=== PATIENT | female | born 1970 | race Two or more races ===

== ENCOUNTER 2025-03-06 08:06 | Emergency (ER) | payer OTHER, SELFPAY ==
[2025-03-06 08:09] VITALS: BMI 26.6
[2025-03-06 08:37] VITALS: BP 170/106; PULSE 77; RESP 18; TEMP 36.9; O2SAT 100
--- NOTE | 2025-03-06 08:54 | PD.EDANKLE ---
Lower Extremity Injury RME/HPI General Chief Complaint: Ankle/Foot Injury Stated Complaint: FALL OFF MACHINE 3 FEET, PAIN/INJURY LEFT ANKLE Time Seen by Provider: 03/06/25 09:01 Source: patient and interpreter translator Arrival date/time: 03/06/25 08:06 Mode of arrival: wheelchair Limitations: no limitations RME / HPI Onset (ago): hour(s) Injury: Left: ankle and foot Type of Injury: blunt Place: work Severity: severe Severity scale (1-10): 5 Exacerbating factors: weight bearing and movement Context: other (Fell off a machine) Associated symptoms: snap/pop sensation and swelling Related Data Previous Rx's ?Medication ?Instructions ?Recorded ibuprofen 800 mg tablet (IBU) 800 mg PO Q8H PRN pain #30 tabs 03/06/25 Allergies Allergy/AdvReac Type Severity Reaction Status Date / Time No Known Allergies Allergy Verified 03/06/25 08:11 Review of Systems Constitutional Constitutional: Reports system reviewed and no additional complaints, except as documented Eyes Eyes: Reports system reviewed and no additional complaints, except as documented, Denies dry eyes, Denies exophthalmos and Reports floaters Cardiovascular Cardiovascular: Denies chest pain with activity and Denies claudication ED Exam Narrative Physical exam: Patient was given a heavy bundle described as 50 pounds of weight causing her to fall hurting her left ankle. General Limitations: Present no limitations General appearance: Present alert and in no apparent distress Head Head exam: Present atraumatic Eye Eye exam: Present normal appearance and EOMI ENT ENT exam: Present normal exam, normal oropharynx and mucous membranes moist Neck Neck exam: Present normal inspection, full ROM and trachea midline Extremities Exam Extremities exam: Present normal inspection, full ROM and tenderness (The left ankle at the left lateral malleolus is tender to palpation, it is edematous. There is no ecchymosis is presently.) Back Exam Back exam: Present normal inspection and full ROM Neurological Exam Neurological exam: Present alert and oriented X3 Psychiatric Psychiatric exam: Present normal affect and normal mood Skin Skin exam: Present warm, dry, intact and normal color Course Course Course Narrative: Patient will have 30 mg of Toradol IM and she will have a left ankle x-ray. Quality Measures none (na) Orders Category Date Time Status XR ankle LT 2V Stat Exams 03/06/25 09:00 Completed HYDROcodone/APAP 10/325 [[place] [address]] Med 03/06/25 09:00 Discontinued 1 tab PO X1 ONE na Vital Signs Vital signs: Vital Signs Temperature 98.4 F 03/06/25 08:37 Pulse Rate 77 03/06/25 08:37 Respiratory Rate 18 03/06/25 08:37 Blood Pressure 170/106 H 03/06/25 08:37 Pulse Oximetry (%) 100 03/06/25 08:37 Oxygen Delivery Method Room Air 03/06/25 08:37 Pulse ox room air is 100% Extremity Injury, Lower Patient data External records reviewed:: Other (specify) (na) Clinical information provided by:: none (na) Social determinants that could affect healthcare access:: none (na) Patient has the following chronic illnesses:: na Evaluation data The following diagnostics were reviewed and interpreted by me:: other (specify) (na) Lab and/or radiology exams considered but not ordered:: na Interpretation Summary: na Medications / Prescriptions Medications or Prescriptions considered but not ordered:: na Medication administrations:: Medication Administration History Discontinued Medications Hydrocodone Bitart/Acetaminophen (Hydrocodone/Apap 10/325 Tab) 1 tab PO X1 ONE Stop: 03/06/25 09:01 Last Admin: 03/06/25 09:23 Dose: 1 tab Documented By: ARF mert Consultations Consultation(s) initiated? (list below): No Diagnosis Extremity Injury, Lower Differential Diagnosis: ankle sprain and strain, acute internal derangement of knee, fracture of femur and fracture of hip Admission Indicated Admission indicated?: not indicated Admission Request Was there a request for admission?: No Disposition Plan Disposition Plan: Discharge Discharge Attestation Discharge Attestation: The patient and all family members were given an opportunity to ask questions and understood the discharge instructions. Discharge instructions specifically effects, indications for sooner follow up or return to the emergency department, and the expected course of current diagnosis. Patient condition: Stable Discharge Plan Plan Patient Disposition: HOME (Self Care) Discharge Disposition comment: Patient discharged in no apparent distress Patient condition on transfer: Stable Prescriptions/Referrals Prescriptions/Med Rec: New ibuprofen [IBU] 800 mg tablet 800 mg PO Q8H PRN (Reason: pain) Qty: 30 0RF Referrals: No Primary/Family,Physician [Primary Care Provider] - In 1 week Joseph Peña MD [Physician] - In 1 week Problem List Clinical Impression: Ankle fracture Patient/Caregiver Discharge Instructions Discharge Activity: activity as tolerated Education Materials: ED Fracture, Lower Extremity Print Language: Nepalese Stand Alone Forms: [facility] Award Info., Patient Portal Info Letter
--- NOTE | 2025-03-06 09:00 | XR_ITS ---
Examination: Left ankle 2 views Technique one AP lateral left ankle 2 views Date and time: March 06, 2025 0909 hours INDICATIONS: Patient fell today with injury of ankle, ankle pain. FINDINGS: Acute fractures fibular tip and medial malleolus without significant displacement. No ankle dislocation IMPRESSION: Acute bimalleolar fractures
== END 2025-03-06 14:41 | disposition home or self-care (01) ==
PROVIDERS: Emergency Provider Family Medicine
DX: S82.845A Nondisplaced bimalleolar fracture of left lower leg, initial encounter for closed fracture (principal); W17.89XA Other fall from one level to another, initial encounter; Y99.0 Civilian activity done for income or pay
CPT/HCPCS: 73600; 99283; A9270